=== PATIENT | female | born 1975 | race African-American/Black ===

== ENCOUNTER 2016-09-18 05:28 | Observation (INO) | payer BC ==
--- NOTE | ~2016-09-18 | HP ---
History And Physical [place] [id number] [facility] [place]. [address] NAME: NORMA ISBELL : 71 STATUS : ADM Bruna PAT#: [id number] AGE: 41 ADM/REG DATE : 09/18/16 MR#: [id number] REPORT SERV DATE: 09/18/16 DICTATED BY: MARIELA MCCLELLAND DATE: 09/18/16 REPORT STATUS : Draft TRANSCRIBED BY: ALKA DATE: 09/18/16 DATE OF ADMISSION: 09/18/2016 PRIMARY CARE PROVIDER: None. CHIEF COMPLAINT: Atypical chest pain. 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 She denies any nausea, diaphoresis, dizziness, or belching. At its most intense, the chest pain was rated a 10/10. At time of interview in the [facility], she is pain free. She states the episode lasted three to four hours in duration. She did take an aspirin and vinegar prior to arrival with no improvement in her symptoms. Her symptoms were resolved either with time or aspirin and nitro paste provided in the emergency room. The patient denies any personal history of myocardial infarction, stroke, DVT, or pulmonary embolus. The patient denies any recent fever or chills. No palpitations. No syncopal episodes. Denies PND or orthopnea. Of note, the patient was upset and frustrated with a son who did not return the family car in a timely fashion, requiring her to miss scientology and events on Sunday, which was upsetting to her. PAST MEDICAL HISTORY: 1. Previously on DARIO inhibitor for hypertension, not taken for greater than one year secondary to no PCP. 2. Denies diabetes or dyslipidemia. 3. Tobacco abuse. PAST SURGICAL HISTORY: Cholecystectomy, a partial hysterectomy, a robotic surgery for endometriosis and cyst to be removed. SOCIAL HISTORY: She is engaged, with three children. She is unemployed. Does not have an exercise routine. Smokes five cigarettes per day for the past 20 or so years, but has smoked as much as a half pack per day. Rarely consumes alcohol. Denies illicits. FAMILY HISTORY: No embolic events reported in first-degree relatives. REVIEW OF SYSTEMS: A 14-point review of systems performed is significant for episodic systolic blood pressure of 160 per report and heart rate of 120 with recent frustration over her son not returning the family car. Otherwise, complete review of systems obtained and negative. HOME MEDICATIONS: Aspirin daily. Home med list not yet available for this clinician. History And Physical [address] [place]. [address] NAME: NORMA ISBELL : 71 STATUS : ADM Bruna PAT#: [id number] AGE: 41 ADM/REG DATE : 09/18/16 MR#: [id number] REPORT SERV DATE: 09/18/16 DICTATED BY: MARIELA MCCLELLAND DATE: 09/18/16 REPORT STATUS : Draft TRANSCRIBED BY: ALKA DATE: 09/18/16 PHYSICAL EXAMINATION: VITAL SIGNS: Blood pressure 103/52, pulse 87, respirations 19, temperature 97.7, O2 saturation 94% on room air. Height 5 feet 4 inches, weight 185 pounds, BMI 32. GENERAL: Cooperative, in no apparent distress. Multiple tattoos. HEENT: Pupils 2 mm. Sclera nonicteric. Nares patent. Moist mucous membranes. No xanthelasma. NECK: Trachea midline. No thyromegaly. No JVD. No bruits. LYMPH: No cervical lymphadenopathy. No supraclavicular lymphadenopathy. RESPIRATORY: Unlabored respirations. Breath sounds clear bilaterally to posterior auscultation. No wheezes or rhonchi. CARDIOVASCULAR: Regular rate. No murmur, rub, or gallop appreciated. EXTREMITIES: Without edema. Pulses 2+ bilaterally. ABDOMEN: Soft, nontender, nondistended. Normal bowel sounds auscultated throughout. No organomegaly. SKIN: Warm, dry extremities. No pallor or cyanosis. PSYCHIATRIC: Appropriate affect. Alert, oriented x3. LABORATORY DATA: Troponin less than 0.02 twice. Potassium 3.5, BUN 15, creatinine 1.06, glucose 112, magnesium 2.0. WBC 7.7, hemoglobin 12.4, hematocrit 36.9, platelet count 260,000. EKG, sinus rhythm with LVH. ASSESSMENT AND PLAN: 1. Atypical chest pain. The patient has been observed in the CP[facility] overnight to rule out myocardial infarction with serial enzymes and serial EKGs and held n.p.o. We will proceed with stress echo today. The patient will be discharged home if negative study to follow up at [facility] in one to two weeks. 2. Ongoing tobacco abuse. Counseled regarding cessation. 3. No PCP. Blood pressure well controlled on this visit. The patient has been asked to maintain a blood pressure diary and follow up with [facility] in one to two weeks should any hypertensive event or trend be documented. Most likely, will need to be started on antihypertensives. NICOLE/ALKA ELMER Stevens, MEDICAL CERTIFICATION SPECIALIST-BC / [id number] CC: ELMER Stevens, MEDICAL CERTIFICATION SPECIALIST-BC
[2016-09-18 04:27] LABS: BASOPHILS 0.3 %; BASOPHILS ABSOLUTE 0.02 10/3/uL (0.0-0.16); EOSINOPHILS 2.7 %; EOSINOPHILS ABSOLUTE 0.21 10/3/uL (0.0-0.53); HEMATOCRIT 36.9 % (36.0-48.0); HEMOGLOBIN 12.4 g/dL (12.0-16.0); IMMATURE GRANULOCYTES 0.1 %; IMMATURE GRANULOCYTES ABSOLUTE 0.01 10/3/uL (0.0-0.11); LYMPHOCYTES 43.3 %; LYMPHOCYTES ABSOLUTE 3.33 10/3/uL (0.67-4.30); MEAN CORPUS HGB CONC 33.6 g/dL (32.0-36.0); MEAN CORPUSCULAR HEMOGLOB 28.6 pg (26.0-34.0); MEAN CORPUSCULAR VOLUME 85.2 fL (80-100); MEAN PLATELET VOLUME 8.8 fL (9.2-13.0); MONOCYTES 9.5 %; MONOCYTES ABSOLUTE 0.73 10/3/uL (0.21-1.20); NEUTROPHILS 44.1 %; NEUTROPHILS ABSOLUTE 3.39 10/3/uL (2.02-8.40); PLATELET COUNT 260 10/3/uL (150-400); RBC DISTRIBUTION WIDTH 13.2 % (12.0-16.0); RED CELL COUNT 4.33 10/6/uL (4.0-5.6)
[2016-09-18 04:28] LABS: ER CBC TAT 0 Hrs 05 Mins; MANUAL DIFF NO %; WHITE BLOOD CELLS 7.7 10/3/uL (4.5-10.5)
[2016-09-18 04:45] LABS: CHEST PAIN PROFILE TAT 0 Hrs 22 Mins; CHLORIDE, SERUM 108 MMOL/L (96-112); CO2 (CARBON DIOXIDE) 25 MMOL/L (24-34); CREATININE 1.06 MG/DL (0.55-1.02); GFR AFRICAN AMERICAN 74 ML/MIN (>=60); GFR NON AFRICAN AMERICAN 64 ML/MIN (>=60); POTASSIUM, SERUM 3.5 MMOL/L (3.5-5.3); SODIUM, SERUM 140 MMOL/L (135-148); TROPONIN I <0.02 NG/ML (<0.05)
[2016-09-18 04:46] LABS: BUN (BLOOD UREA NITROGEN) 15 MG/DL (6-23); GLUCOSE, SERUM 112 MG/DL (60-99)
[2016-09-18 05:17] LABS: PARTIAL THROMBO TIME 31.6 SEC (22.5-37.2)
[2016-09-18 05:18] LABS: INTERNATIONAL NORMAL RATI 1.1 UNITS (-)
[2016-09-18] MEDS ORDERED: NO HOME MEDS (10:25)
[2016-09-18] MEDS ORDERED: PRIN10 PO (10:26)
[2016-09-18] MEDS ORDERED: ASABAYER PO (10:27)
[2016-09-19 05:55] LABS: BUN (BLOOD UREA NITROGEN) 15 MG/DL (6-23); CALCIUM, SERUM 8.7 MG/DL (8.5-10.4); CHLORIDE, SERUM 109 MMOL/L (96-112); CO2 (CARBON DIOXIDE) 24 MMOL/L (24-34); CREATININE 1.05 MG/DL (0.55-1.02); GFR AFRICAN AMERICAN 75 ML/MIN (>=60); GFR NON AFRICAN AMERICAN 65 ML/MIN (>=60); GLUCOSE, SERUM 113 MG/DL (60-99); POTASSIUM, SERUM 4.2 MMOL/L (3.5-5.3); SODIUM, SERUM 142 MMOL/L (135-148)
== END 2016-09-19 11:35 | disposition home or self-care (01) ==
LOC: ER 05:28 → CDU1 05:55
PROVIDERS: Clinical Nurse Specialist; Nurse Practitioner Acute Care
DX: R07.89 Other chest pain (principal); F17.210 Nicotine dependence, cigarettes, uncomplicated; I10 Essential (primary) hypertension; M19.90 Unspecified osteoarthritis, unspecified site; Z90.49 Acquired absence of other specified parts of digestive tract; Z90.711 Acquired absence of uterus with remaining cervical stump; Z98.890 Other specified postprocedural states; Z98.51 Tubal ligation status
CPT/HCPCS: 71010; 80048; 83735; 84484; 85025; 85610; 85730; 93005; 96374; 99285; A9270-GY; G0378